=== PATIENT | female | born 1960 | race Caucasian/White ===

== ENCOUNTER 2022-10-10 15:40 | Emergency (ER) | payer SELFPAY ==
--- OUTSIDE RECORDS SUMMARY | 2022-10-10 15:45 | XMS REPORT | Continuity of Care Document ---
:1960 Author Organization [facility] t Address [address] [place] [address] Care Team Providers Name Role Phone HumairaMarlo Attending Clinician Madeleine HARRISON, Deny Diamond Attending Clinician Brielle Quinteros MD, Vishal Mancia Attending Clinician [phone] Hero Galindo MD Attending Clinician HERO GALINDO Attending Clinician Unavailable DENY SALVADOR Attending Clinician Unavailable HERO GALINDO Admitting Clinician Unavailable Problems Condition Condition Condition Status Onset Resolution Last Treating Co mments Source Name Details Category Date Date Treatment Clinician Date COPD with COPD with Disease Active [facility] exacerb[facility] exacerbati 00:00: Me dical on on 00 Center Pleural Pleural Disease Active [facility] effusion [facility]usion [facility] 00:[facility] 00 Center Smoker Smoker Problem Active 2022-02-17 Braxton lilliana (finding) (finding) 03:53:02 l Active [employer] Problem 02/17/2022 Medical Group History of Past Illness Condition Condition Condition Status Onset Resolution Last Treating Co mments Source Name Details Category Date Date Treatment Clinician Date Emphysema, Emphysema Problem 2022-02-09 2022-02-09 Memoria unspecifie , 02-06 02:00:21 02:00:21 l d unspecifie 19:28: n d 00 02/06/2022 02/09/2022 Medical Group Nicotine Nicotine Problem 2022-02-09 2022-02-09 Memoria dependence dependence 02-06 02:00:21 02:00:21 l , , 09:44: Nate unspecifie unspecifie 00 d, d, uncomplica uncomplica angel luis angel luis 02/06/2022 2 Medical Group Pleural Pleural Problem 2022-02-09 2022-02-09 Memoria effusion, effusion, 02-06 02:00:21 02:00:21 l not not 09:44: Nate elsewhere elsewhere 00 classified classified 02/06/2022 2 Medical Group Persons Persons Problem 2022-01-08 2022-01-08 Memoria encounteri encounteri 01-05 02:34:31 02:34:31 l health health 19:59: Herm abi services services 00 in other in other specified specified circumstan circumstan binta binta 01/05/2022 01/08/2022 Medical Group Acute Acute Problem 2022-01-08 2022-01-08 M emoria upper upper 01-05 02:34:31 02:34:31 l respirator respirator 15:45: He rmann y y 00 infection, infection, unspecifie unspecifie d d 01/05/2022 01/08/2022 Medical Group Allergies, Adverse Reactions, Alerts Allergy Allergy Status Severity Reaction(s) Onset Inactive Treating Comm ents Source Name Type Date Date Clinician Hydrocod Propensi Active [facility]a [facility]omiting [facility]14 [facility] adverse 00:00: Medical reaction 00 Center s Penicill Propensi Active Shortness Of [facility] ty to Breath, Rash 4-14 [facility] adverse 00:00: Medical reaction 00 Center s PENICILL Allergy Active High Sob [facility] IN 4-14 [facility] 00:[facility]: Medical 00 Center HYDROCOD Allergy Active N\T\V [facility] ONE 4-14 [facility] 00:[facility]: Medical 00 Center penicill penicill Active Memori a ins ins l Nate HYDROcod HYDROcod Active Memori a one one l [employer] [place] Social History Social Habit Start Date Stop Date Quantity Comments Source History SDOH [facility] Alcohol intake 2022-01-20 2022-01-20 Current drinker [facility] 00:00:00 00:00:00 of alcohol [facility] (finding) History [facility] 2022-01-20 2022-01-[address] [facility] Transport Med 00:00:00 00:00:[address] [facility] 2022-01-20 2022-01-[address] [facility] Housing Unable to 00:00:00 00:00:00 Medical Center Pay History [facility] 2022-01-20 2022-01-[address] [facility] Housing Places 00:00:00 00:00:00 Medical Ce nter Lived History [facility] 2022-01-20 2022-01-[address] [facility] Housing Homeless 00:00:00 00:00:00 [facility] Last Year Cigarettes smoked 2022-01-19 2022-01-19 [facility] current (pack per 00:00:00 00:00:00 Medical Center day) - Reported Cigarette 2022-01-19 2022-01-[address] [facility] pack-years 00:00:00 00:00:00 [facility] Tobacco use and 2022-01-19 2022-01-[address] Mari kes exposure 00:00:00 00:00:00 [facility] Social History 2022-01-05 2022-01-05 [facility] 19:54:20 19:54:20 Sex Assigned At [birth year] [facility] alka 00:00:00 00:00:00 [facility] Smoking Status Start Date Stop Date Source Current every day smoker 2022-01-19 00:00:00 [facility] Medications Ordered Filled Start Stop Current Ordering Indication Dosage Frequency Signature Comments Components Source Medication Medication Date Date Medication? Clinician (SIG) Name Name budesonide Yes 0.5 mg = 2 M emoria 0.5 mg/2 mL 5-02 mL, NEB, l inhalation 19:54: Daily, # Her osborn suspension 00 60 mL, 11 Refill(s) Nebulizer Yes 1 ea, Memoria 5-02 MISC, l 19:54: ONCALL, # Nate 00 1 ea, 0 Refill(s) Nebulizer 2022-0 Yes 1 ea, Memoria Mask Adult 5-02 MISC, PRN, l Misc/Other 19:54: PRN As Heather nn 00 directed by physician, # 1 ea, 0 Refill(s) Albuterol Yes = 2 puff, Mem oria (Eqv-Proven -02 INHALATION l til HFA) 90 19:53: , Q6H, # 8 Nate mcg/inh 00 gm, 3 inhalation Refill(s), aerosol Pharmacy: [facility] #[id number], 152.4, cm, 02/06/22 14:29:00 CDT, Height, 52.955, kg, 02/06/22 14:29:00 CDT, Weight albuterol Yes Inhale by [facility] HFA 16 mouth via [facility] (VENTOLIN 15:19: inhaler Medic al HFA) 90 54 every 6 Center mcg/actuati (six) on inhaler hours as needed for Wheezing. predniSONE Yes Prednisone [facility] (DELTASONE) 16 taper : [facility] 10 MG 00:00: take 30 mg Medica l tablet 00 for 3 Center days, 20 mg for 3 days, 10 mg for 3 days. then discontinu e. furosemide 2021- No 20mg QD Take [address] (LASIX) 20 01-21-23 tablet (20 Mari kes MG tablet 00:00: 23:59 mg total) Me dical 00 :00 by mouth Center daily for 7 days. azithromyci 2021- No 500mg QD Take [address] n 01-2119 tablet [facility] (ZITHROMAX) 00:00: 23:59 (500 mg Me dical 500 MG 00 :00 total) by Center tablet mouth daily for 3 days. Albuterol Yes = 2 puff, Mem oria (Eqv-Proven -12 INHALATION l til HFA) 90 16:15: , Q6H, # 8 Nate mcg/inh 00 gm, 0 inhalation Refill(s), aerosol Pharmacy: [facility] #[id number], 152.4, cm, 01/05/22 14:42:00 CDT, Height, 56.875, kg, 01/05/22 14:42:00 CDT, Weight penicillin 2021-0 Yes 500 mg = 1 M emoria V potassium 3-31 tab, PO, l 500 mg oral 20:28: BID, X 10 H ermann tablet 00 day, # 20 tab, 0 Refill(s), Pharmacy: [facility] #[id number], 152.4, cm, 01/05/22 14:42:00 CDT, Height, 56.875, kg, 01/05/22 14:42:00 CDT, Weight Cepacol 0 Yes 1 lozenge, Braxton lilliana Sore Throat 3-31 PO, Q2H, X l Extra 20:25: 5 day, # [employer] Strength 00 16 ea, 0 [place] Refill(s), 15 mg-2.3 Pharmacy: mucous [facility] loz[facility] #[id number], 152.4, cm, 01/05/22 14:42:00 CDT, Height, 56.875, kg, 01/05/22 14:42:00 CDT, Weight Tessalon Yes 100 mg = 1 Mem oria Perles 100 3-31 cap, PO, l mg oral 20:25: Q8H, PRN n capsule 00 cough, do not crush or chew, X 10 day, # 30 cap, 0 Refill(s), Pharmacy: [facility] #[id number], 152.4, cm, 01/05/22 14:42:00 CDT, Height, 56.875, kg, 01/05/22 14:42:00 CDT, Weight Lidocaine 0 Yes 0.1 gm = 5 Me moria Viscous 2% 3-31 mL, l mucous 20:24: S&SPIT, Nate membrane 00 TID, PRN solution Sore Throat, X 5 day, # 80 mL, 0 Refill(s), [id number], 152.4, cm, 01/05/22 14:42:00 CDT, Height, 56.875, kg, 01/05/22 14:42:00 CDT, Weight ibuprofen 0 Yes 200 mg = 1 Me moria 200 mg oral 3-31 tab, PO, l tablet 19:52: Q6H Nate 00 Tylenol Yes 1,000 mg = Braxton lilliana Caplet 3-31 2 tab, PO, l Extra 19:51: Q6H [employer] Strength 00 500 mg oral tablet Vitamin C Yes = 1 tab, Braxton lilliana 3-31 PO, Daily l 19:50: Nate 00 One A Day Yes 1 tab, PO, Me moria Women's 3-31 Daily l Complete 19:50: Nate oral tablet 00 Immunizations Ordered Immunization Filled Immunization Date Status Commen ts Source Name Name [id number] 2021-09-08 Completed Braxton rial [id number]-[id number] 00:00:00 Herm abi [id number] 2021-01-22 Completed Braxton rial NABNT-[id number] 00:00:00 Herm abi [id number] 2021-01-01 Completed Braxton rial NABNT-[id number] 00:00:00 Herm abi Vital Signs Vital Name Observation Time Observation Value Comments Source HEIGHT 2022-01-19 04:20:00 157.5 cm WEIGHT 2022-01-19 04:20:00 50.803 kg HEIGHT 2022-01-19 04:20:00 157.5 cm WEIGHT 2022-01-19 04:20:00 50.803 kg HEIGHT 2022-01-19 04:20:00 157.5 cm WEIGHT 2022-01-19 04:20:00 50.803 kg Temperature Oral (F) 2022-02-06 19:29:00 98.9 F [facility] Heart Rate 2022-02-06 19:29:00 [facility] [employer] [place] Systolic (mm Hg) 2022-02-06 19:29:00 Braxton rial [employer] [place] Diastolic (mm Hg) 2022-02-06 19:29:00 Mem orial Nate Height 2022-02-06 19:29:00 152.4 cm [facility] [employer] Weight 2022-02-06 19:29:00 [facility] BMI Calculated 2022-02-06 19:29:00 Harlanori al [employer] [place] Heart rate 2022-01-21 11:43:54 109 /min [facility] Respiratory rate 2022-01-21 11:43:54 18 /min [facility] Oxygen saturation in 2022-01-21 11:43:54 92 /min [facility] Arterial blood by Medical Ce nter Pulse oximetry Systolic blood 2022-01-21 11:43:22 116 mm[Hg] [facility] Diastolic blood 2022-01-21 11:43:22 71 mm[Hg] [facility] Body temperature 2022-01-21 11:43:20 36.56 Rae [facility] Body height 2022-01-19 04:20:00 157.5 cm [facility] Body weight 2022-01-19 04:20:00 50.803 kg [facility] BMI 2022-01-19 04:20:00 20.49 kg/m2 [facility] Diastolic (mm Hg) 2022-01-05 19:35:00 Mem orial Nate Height 2022-01-05 19:35:00 152.4 cm [facility] Weight 2022-01-05 19:35:00 [facility] BMI Calculated 2022-01-05 19:35:00 Memori al Nate Temperature Oral (F) 2022-01-05 19:35:00 102.0 F [facility] Heart Rate 2022-01-05 19:35:00 [facility] Systolic (mm Hg) 2022-01-05 19:35:00 [facility] Procedure Date / Time Performing Clinician Source Performed XR CHEST 1 VIEW PORTABLE 2022-01-21 06:21:[address] [facility] CBC W/PLT COUNT & AUTO 2022-01-21 04:40:00 Kamla Polo [facility] BASIC METABOLIC PANEL 2022-01-21 04:40:00 Kamla Polo [facility] CBC W/PLT COUNT & AUTO 2022-01-21 04:40:00 Kamla Polo [facility] MAGNESIUM 2022-01-20 16:01:00 [place], [facility] POTASSIUM 2022-01-20 16:01:00 Genna [facility] CBC W/PLT COUNT & AUTO 2022-01-20 04:33:00 [facility] BASIC METABOLIC PANEL 2022-01-20 04:33:[address] [facility] CBC W/PLT COUNT & AUTO 2022-01-20 04:33:00 [facility] XR CHEST 1 VIEW PORTABLE 2022-01-20 04:05:[address] [facility] EBV ANTIBODY, IGG 2022-01-19 15:21:00 Ge Magana [facility] RESPIRATORY PANEL 2022-01-19 11:10:[address] [facility] TROPONIN I 2022-01-19 11:03:00 Deepti Daigle [facility] 2D ECHO W/ DOPPLER 2022-01-19 09:38:58 [facility] (CW/PW/COLOR) [facility] XR CHEST 1 VIEW PORTABLE 2022-01-19 07:08:00 Madeleine [facility] B-TYPE NATRIURETIC FACTOR 2022-01-19 05:57:00 Madeleine Denybita Diamond [facility] (BNP) [facility] TSH/FREE T4 IF INDICATED 2022-01-19 05:57:00 Madeleine [facility] T4, FREE 2022-01-19 05:57:00 Madeleine, [facility] CBC W/PLT COUNT & AUTO 2022-01-19 05:53:00 Madeleine [facility] COMPREHENSIVE METABOLIC 2022-01-19 05:53:00 Madeleine [facility] LACTIC ACID, VENOUS 2022-01-19 05:53:00 Madeleine [facility] CBC W/PLT COUNT & AUTO 2022-01-19 05:53:00 Deny [facility] DI[facility] EKG-SCANNED 2022-01-19 00:00:00 Provider, Andie EVANS [facility] Vaginal delivery Azael Sutton n Procedure on Azael Sullivan foot<sup>1</sup> Plan of Care Planned Activity Planned Date Details Comments Source Future Scheduled 2023-01-[address] [facility] Test 00:00:00 Counseling and Medical Cente r Screening (12+) [code = Tobacco Cessation Counseling and Screening (12+)] Future Scheduled 2022-10-[address] [facility] Test 00:00:00 (12+) [code = Medical Center DEPRESSION SCREENING (12+)] Future Scheduled 2022-06-08 INFLUENZA VACCINE (#1) [facility] 00:00:00 [code = INFLUENZA Medical Ce nter VACCINE (#1)] Future Scheduled 2009 Screening for malignant [facility] Test 00:00:00 neoplasm of lung Medical [address] (procedure) [code = 434889333] Future Scheduled 2009 SHINGLES VACCINES ([address] [facility] Test 00:00:00 2) [code = SHINGLES Medical Center VACCINES (1 of 2)] Future Scheduled 2004 Lipid panel (procedure) [facility] Test 00:00:00 [code = 61495516] Medical Ce nter Future Scheduled 1980 Screening for malignant [facility] Test 00:00:00 neoplasm of cervix Medical C enter (procedure) [code = 084640821] Future Scheduled 1978 DTAP/TDAP/TD VACCINES [facility] Test 00:00:00 (1 - Tdap) [code = Medical C enter DTAP/TDAP/TD VACCINES (1 - Tdap)] Future Scheduled 1977 HEPATITIS C SCREENING [facility] Test 00:00:00 [code = HEPATITIS C Medical Center SCREENING] Future Scheduled [address] [facility] Test 00:00:00 0-64 YRS (1 - PCV) Medical C enter [code = PNEUMOCOCCAL VACCINE 0-64 YRS (1 - PCV)] Future Scheduled 1959 COVID-19 VACCINE (#1[facility] Test 00:00:00 [code = COVID-[address] VACCINE (#1)] Future Scheduled 1959 Screening for malignant [facility] Test 00:00:00 neoplasm of breast Medical C enter (procedure) [code = 385523785] Future Scheduled 1959 CT Colonography (combo) [facility] Test 00:00:00 [code = CT Colonography [facility] (combo)] Future Scheduled 1959 Screening for malignant [facility] Test 00:00:00 neoplasm of colon Medical Ce nter (procedure) [code = 302293505] Future Scheduled 1959 Screening for malignant [facility] Test 00:00:00 neoplasm of colon Medical Ce nter (procedure) [code = 772388515] Future Scheduled 1959 Screening for malignant [facility] Test 00:00:00 neoplasm of colon Medical Ce nter (procedure) [code = 514288056] Future Scheduled 1959 Screening for malignant [facility] Test 00:00:00 neoplasm of colon Medical Ce nter (procedure) [code = 705843444] Future Scheduled 1960 Sigmoidoscopy [code = [facility] Test 00:00:00 Sigmoidoscopy] Medical Cente r Encounters Start End Encounter Admission Attending Care Care Encounter Source Date/Time Date/Time Type Type Clinicians Facility Department ID 2022-10-12 2022-10-12 Outpatient [facility] [id number] Memoria 15:20:00 15:20:00 02 lakeisha Sullivan 2022-02-13 2022-02-15 Phone nullFlavo [facility] [id number] Memoria 15:31:08 04:59:59 Message r [facility] 2022-02-13 2022-02-14 Outpatient MG [facility] [id number] 10:31:08 23:59:59 2022-02-06 2022-02-07 Outpatient nullFlavo [facility] [id number] Memoria 19:00:00 04:59:59 r Primary 01 l [facility] 2022-02-06 2022-02-06 Outpatient Marlo Gerardo [facility] [id number] 14:00:00 23:59:59 01 2022-02-06 2022-02-06 Outpatient MHIE [place] [id number] Memoria 14:00:00 14:00:00 01 l [employer] [place] 2022-01-19 2022-01-21 [facility] Deny Salvador [facility] [id number] 04:07:00 15:19:00 Encounter Vishal Perez Jaya [facility] 2022-01-19 2022-01-21 Inpatient ER HERO GALINDO [facility] Internal [id number] [facility] 04:07:00 15:19:00 Med 2022-01-17 2022-01-19 Phone nullFlavo [facility] [id number] Memoria 15:48:44 04:59:59 Message r Primary 00 l Care Nateabi AbrahamBrewster 2022-01-19 2022-01-19 Travel [facility] [id number] [facility] 00[facility] 00:00:00 [facility] 2022-01-17 2022-01-18 Outpatient MG MG [id number] 10:48:44 23:59:59 00 2022-01-05 2022-01-06 [place] [id number] Memoria 19:40:00 04:59:59 r Primary 00 l [facility] 2022-01-05 2022-01-05 Outpatient Marlo Gerardo MG [facility] [id number] 14:40:00 23:59:59 00 2022-01-05 2022-01-05 Outpatient IE IE [id number] Memoria 14:40:00 14:40:00 00 l [employer] [place] Results Test Description Test Time Test Comments Results Result Comments Source EBV ANTIBODY, IGM 2022-01-23 15:15:57 Test Item Value Reference Range Interpretation Comme nts RUBENS MADDOX VIRAL CAPSID ANTIGEN IGM (BEAKER) (test Negativ e Negative, Equivocal code = 3418) Rubens Maddox Viral Capsid Antigen IgM Result Interpretation: </= 0.8 Al Negative 0.9-1.0 Al Equivocal >/= 1.1 Al PositiveEBV ANTIBODY, [id number] 15:15:57 Test Item Value Reference Range Interpretation Comments RUBENS MADDOX VIRAL CAPSID Positive Negative, Equivocal A ANTIGEN IGG (BEAKER) (test code = 3415) Rubens Maddox Viral Capsid Antigen IgG Result Interpretation: </= 0.8 Al Negative 0.9-1.0 Al Equivocal >/= 1.1 Al PositiveRAD, CHEST, 1 VIEW, NON DEPT 2022-01-21 06:23:00Reason for exam:->COPD exacShould this be performed at the bedside?->Yes[facility] : 1960 Sex: FFINAL REPORT RAD, CHEST, 1 VIEW, NON DEPT INDICATION: COPD exac COMPARISON: Prior day's exam FINDINGS: Portable frontal view of the chest. IMPRESSION: Support Lines: Overlying leads/monitorsLungs and pleura: Small bilateral effusions and adjacent atelectasis, unchanged. No significant pneum othorax. Heart and mediastinum: Stable contours. Additional findings: None. Signed: Frannie Paz [facility] Verified Date/Time: 01/21/2022 06:23:32 C METABOLIC [id number] 05:35:54 Test Item Value Reference Range Interpretation Comments SODIUM (BEAKER) 142 meq/L 135-148 (test code = 381) POTASSIUM (BEAKER) 4.2 meq/L 3.5-5.5 (test code = 379) CHLORIDE (BEAKER) 102 meq/L 98-106 (test code = 382) CO2 (BEAKER) (test 26 meq/L 20-31 code = 355) BLOOD UREA NITROGEN 11 mg/dL 10-26 (BEAKER) (test code = 354) CREATININE (BEAKER) 0.56 mg/dL 0.50-1.20 (test code = 358) GLUCOSE RANDOM 123 mg/dL 70-110 H (BEAKER) (test code = 652) CALCIUM (BEAKER) 9.2 mg/dL 8.5-10.5 (test code = 697) EGFR (BEAKER) (test 110 mL/min/1.73 ESTIM ATED GFR IS code = 1092) sq m NOT ACCURATE CREATININE CLEARANCE IN PREDICTING GLOMERULAR FILTRATION RATE . ESTIMATED GFR I S NOT APPLICABLE FOR DIALYSIS PATIEN TS. [employer] ID - [id number] W/PLT COUNT & AUTO [id number] 04:59:41 Test Item Value Reference Range Interpretation Comments WHITE BLOOD CELL COUNT (BEAKER) 9.4 K/ L 4.0-10.0 (test code = 775) RED BLOOD CELL COUNT (BEAKER) 4.39 M/ L 4.00-5.00 (test code = 761) HEMOGLOBIN (BEAKER) (test code = 12.4 GM/DL 12.0-15.5 410) HEMATOCRIT (BEAKER) (test code = 39.9 % 36.0-46.0 411) MEAN CORPUSCULAR VOLUME (BEAKER) 90.9 fL 82.0-99.0 (test code = 753) MEAN CORPUSCULAR HEMOGLOBIN 28.2 pg 27.0-33.0 (BEAKER) (test code = 751) MEAN CORPUSCULAR HEMOGLOBIN CONC 31.1 GM/DL 32.0-36.0 L (BEAKER) (test code = 752) RED CELL DISTRIBUTION WIDTH 13.8 % 12.0-15.0 (BEAKER) (test code = 412) PLATELET COUNT (BEAKER) (test 550 K/CU MM 150-430 H code = 756) MEAN PLATELET VOLUME (BEAKER) 8.9 fL 6.0-11.5 (test code = 754) NUCLEATED RED BLOOD CELLS 0 /100 WBC 0-0 (BEAKER) (test code = 413) NEUTROPHILS RELATIVE PERCENT 81 % (BEAKER) (test code = 429) LYMPHOCYTES RELATIVE PERCENT 14 % (BEAKER) (test code = 430) MONOCYTES RELATIVE PERCENT 5 % (BEAKER) (test code = 431) EOSINOPHILS RELATIVE PERCENT 0 % (BEAKER) (test code = 432) BASOPHILS RELATIVE PERCENT 0 % (BEAKER) (test code = 437) NEUTROPHILS ABSOLUTE COUNT 7.61 K/ L 1.80-8.00 (BEAKER) (test code = 670) LYMPHOCYTES ABSOLUTE COUNT 1.27 K/ L 1.48-4.50 L (BEAKER) (test code = 414) MONOCYTES ABSOLUTE COUNT (BEAKER) 0.44 K/ L 0.00-1.30 (test code = 415) EOSINOPHILS ABSOLUTE COUNT 0.00 K/ L 0.00-0.50 (BEAKER) (test code = 416) BASOPHILS ABSOLUTE COUNT (BEAKER) 0.03 K/ L 0.00-0.20 (test code = 417) IMMATURE GRANULOCYTES-RELATIVE 1 % 0-0 H PERCENT (BEAKER) (test code = 2801) [id number] 19:18:15 Test Item Value Reference Range Interpretation Comments MAGNESIUM (BEAKER) (test code = 2.2 mg/dL 1.5-3.0 627) [employer] ID - [id number] 16:21:29 Test Item Value Reference Range Interpretation Comments POTASSIUM (BEAKER) (test code = 3.6 meq/L 3.5-5.5 379) [employer] ID - [id number], CHEST, 1 VIEW, NON [id number] 06:23:00Reason for exam:->COPD exacShould this be performed at the bedside?->Yes [facility] : 1960 Sex: FFINAL REPORT RAD, CHEST, 1 VIEW, NON DEPT INDICATION: COPD exac COMPARISON: Prior day's exam FINDINGS: Portable frontal view of the chest. IMPRESSION: Support Lines: None. Lungs and pleura: Unchanged airspace and pleural opacities. No pneumothorax.Heart and mediastinum: Stable contours. Tom tional findings: None. Signed: Jose Manuel Boyd Verified Date/Time: 01/20/2022 06:23:22 BASIC METABOLIC [id number] 05:38:06 Test Item Value Reference Range Interpretation Comments SODIUM (BEAKER) 142 meq/L 135-148 (test code = 381) POTASSIUM (BEAKER) 3.3 meq/L 3.5-5.5 L (test code = 379) CHLORIDE (BEAKER) 102 meq/L 98-106 (test code = 382) CO2 (BEAKER) (test 28 meq/L 20-31 code = 355) BLOOD UREA NITROGEN 13 mg/dL 10-26 (BEAKER) (test code = 354) CREATININE (BEAKER) 0.60 mg/dL 0.50-1.20 (test code = 358) GLUCOSE RANDOM 111 mg/dL 70-110 H (BEAKER) (test code = 652) CALCIUM (BEAKER) 8.6 mg/dL 8.5-10.5 (test code = 697) EGFR (BEAKER) (test 101 mL/min/1.73 ESTIM ATED GFR IS code = 1092) sq m NOT ACCURATE CREATININE CLEARANCE IN PREDICTING GLOMERULAR FILTRATION RATE . ESTIMATED GFR I S NOT APPLICABLE FOR DIALYSIS PATIEN TS. [employer] ID - [id number] W/PLT COUNT & AUTO [id number] 04:59:22 Test Item Value Reference Range Interpretation Comments WHITE BLOOD CELL COUNT (BEAKER) 10.4 K/ L 4.0-10.0 H (test code = 775) RED BLOOD CELL COUNT (BEAKER) 4.04 M/ L 4.00-5.00 (test code = 761) HEMOGLOBIN (BEAKER) (test code = 11.7 GM/DL 12.0-15.5 L 410) HEMATOCRIT (BEAKER) (test code = 37.0 % 36.0-46.0 411) MEAN CORPUSCULAR VOLUME (BEAKER) 91.6 fL 82.0-99.0 (test code = 753) MEAN CORPUSCULAR HEMOGLOBIN 29.0 pg 27.0-33.0 (BEAKER) (test code = 751) MEAN CORPUSCULAR HEMOGLOBIN CONC 31.6 GM/DL 32.0-36.0 L (BEAKER) (test code = 752) RED CELL DISTRIBUTION WIDTH 13.9 % 12.0-15.0 (BEAKER) (test code = 412) PLATELET COUNT (BEAKER) (test 511 K/CU MM 150-430 H code = 756) MEAN PLATELET VOLUME (BEAKER) 9.2 fL 6.0-11.5 (test code = 754) NUCLEATED RED BLOOD CELLS 0 /100 WBC 0-0 (BEAKER) (test code = 413) NEUTROPHILS RELATIVE PERCENT 71 % (BEAKER) (test code = 429) LYMPHOCYTES RELATIVE PERCENT 20 % (BEAKER) (test code = 430) MONOCYTES RELATIVE PERCENT 6 % (BEAKER) (test code = 431) EOSINOPHILS RELATIVE PERCENT 1 % (BEAKER) (test code = 432) BASOPHILS RELATIVE PERCENT 1 % (BEAKER) (test code = 437) NEUTROPHILS ABSOLUTE COUNT 7.38 K/ L 1.80-8.00 (BEAKER) (test code = 670) LYMPHOCYTES ABSOLUTE COUNT 2.09 K/ L 1.48-4.50 (BEAKER) (test code = 414) MONOCYTES ABSOLUTE COUNT (BEAKER) 0.64 K/ L 0.00-1.30 (test code = 415) EOSINOPHILS ABSOLUTE COUNT 0.12 K/ L 0.00-0.50 (BEAKER) (test code = 416) BASOPHILS ABSOLUTE COUNT (BEAKER) 0.06 K/ L 0.00-0.20 (test code = 417) IMMATURE GRANULOCYTES-RELATIVE 1 % 0-0 H PERCENT (BEAKER) (test code = 2801) Respiratory Panel [id number] 15:15:05 Test Item Value Reference Range Interpretation Comments Human Metapneumovirus Not detected Not detected, (test code = 86119-8) Equivocal Rhinovirus (test code = Not detected Not detected, 91368-6) Equivocal INFLUENZA A (NO Not detected Not detected, SUBTYPE) (test code = Equivocal 10839-6) Influenza A subtype H1 (test code = 25505-3) Influenza A Subtype H3 (test code = 70244-9) Influenza A Subtype H1-2009 (test code = 41433-1) Influenza B (test code Not detected Not detected, = 02967-9) Equivocal Respiratory Syncytial Not detected Not detected, Virus (test code = Equivocal 10892-9) Parainfluenza Virus 1 Not detected Not detected, (test code = 84978-2) Equivocal Parainfluenza Virus 2 Not detected Not detected, (test code = 15116-2) Equivocal Parainfluenza virus 3 Not detected Not detected, (test code = 64799-9) Equivocal Parainfluenza Virus 4 Not detected Not detected, (test code = 74050-8) Equivocal Adenovirus (test code = Not detected Not detected, 48812-4) Equivocal Coronavirus 229E (test Not detected Not detected, code = 62713-6) Equivocal Coronavirus HKU1 (test Not detected Not detected, code = 10657-6) Equivocal Coronavirus NL63 (test Not detected Not detected, code = 20218-9) Equivocal Coronavirus OC43 (test Not detected Not detected, code = 99011-7) Equivocal Bordetella Pertussis Not detected Not detected, (test code = 30357-8) Equivocal Chlamydophila Not detected Not detected, Pneumoniae (test code = Equivocal 14553-5) Mycoplasma Pneumoniae Not detected Not detected, (test code = 94611-1) Equivocal MOHAN (test code = MOHAN) Other viruses and bacteria not targeted by this PCR panel cannot be excluded; therefore clinical correlation and follow up of serology, culture results, and other molecular studies is required. The results are not intended to be used as the sole means for clinical diagnosis or patient management decisions. This sample was tested at the [facility] using the [employer] DiscoveryArray Respiratory Panel. It is FDA cleared and has been verified and approved by the [facility] for clinical use on nasopharyngeal swab specimens. The performance of the FilmArray RP has not been established in individuals who received influenza vaccine. Recent administration of a nasal influenza vaccine may cause false positive results for Influenza A and/orInfluenza B. [id number] 15:15:05 Test Item Value Reference Range Interpretation Comments HUMAN METAPNEUMOVIRUS Not detected Not detected, (BEAKER) (test code = 2683) Equivocal RHINOVIRUS (BEAKER) (test Not detected Not detected, code = 2684) Equivocal INFLUENZA A (BEAKER) (test Not detected Not detected, code = 2685) Equivocal INFLUENZA A (NO SUBTYPE) (test code = 3606) INFLUENZA A SUBTYPE H1 (BEAKER) (test code = 2686) INFLUENZA A SUBTYPE H3 (BEAKER) (test code = 2687) INFLUENZA A SUBTYPE H1-2009 (BEAKER) (test code = 3198) INFLUENZA B (BEAKER) (test Not detected Not detected, code = 2688) Equivocal RESPIRATORY SYNCYTIAL VIRUS Not detected Not detected, (BEAKER) (test code = 3199) Equivocal PARAINFLUENZA VIRUS 1 Not detected Not detected, (BEAKER) (test code = 2691) Equivocal PARAINFLUENZA VIRUS 2 Not detected Not detected, (BEAKER) (test code = 2692) Equivocal PARAINFLUENZA VIRUS 3 Not detected Not detected, (BEAKER) (test code = 2693) Equivocal PARAINFLUENZA VIRUS 4 Not detected Not detected, (BEAKER) (test code = 3200) Equivocal ADENOVIRUS (BEAKER) (test Not detected Not detected, code = 2694) Equivocal CORONAVIRUS 229E (BEAKER) Not detected Not detected, (test code = 3201) Equivocal CORONAVIRUS HKU1 (BEAKER) Not detected Not detected, (test code = 3202) Equivocal CORONAVIRUS NL63 (BEAKER) Not detected Not detected, (test code = 3203) Equivocal CORONAVIRUS OC43 (BEAKER) Not detected Not detected, (test code = 3204) Equivocal BORDETELLA PERTUSSIS Not detected Not detected, (BEAKER) (test code = 3205) Equivocal CHLAMYDOPHILA PNEUMONIAE Not detected Not detected, (BEAKER) (test code = 3206) Equivocal MYCOPLASMA PNEUMONIAE Not detected Not detected, (BEAKER) (test code = 3207) Equivocal Other viruses and bacteria not targeted by this PCR panel cannot be excluded; therefore clinical correlation and follow up of serology, culture results, and other molecular studies is required. The results are not intended to be used as the sole means for clinical diagnosis or patient management decisions. This sample was tested at the [facility] using the [employer] Respiratory Panel. It is FDA cleared and has been verified and approved by the [facility] for clinical use on nasopharyngeal swab specimens.The performance of the FilmArrayRP has not been established in individuals who received influenza vaccine. Recent administration of a nasal influenza vaccine may cause false positive results for Influenza A and/orInfluenza B.2D Echo W/Doppler(CW/PW/Color)2022-01-19 13:50:15 Test Item Value Reference Range Interpretation Comments Ejection Fraction Est EF is 50-55% (test code = 2574) Radiology Study observation (narrative) (test code = 67408-5) HARSHADN (test code = Amina Ramirez PXN) - 01/19/2022 Transthoracic Echocardiography Report (TTE) Demographics Patient Name LUZMA HELMS Date of Study 01/19/2022 Gender Female Visit Number [id number] Race Unknown Accession Number [id number] Room Number C256 Date of 1960 Referring Physician DENY SALVADOR Age 61 year(s) Loss Prevention Coordinator [facility] Interpreting [facility] Physician Amina Ramirez MD Procedure Type of Study TTE procedure:2DECHO W DOPPLER(CW/PW/COLOR) (Routine) Indications:Respiratory failure or hypoxemia .Height: 62 inches Weight: 50.8 kg (112 lbs) BSA: 1.49 m^2 BMI: 20.48 kg/m^2HR: 102 bpm BP: 116/71 mmHg Summary Aneurysmal interatrial septum. Normal left ventricular chamber size. Normal wall thickness. Normal overall left ventricular systolic function. No apparent segmental wall motion abnormalities. Estimated LVEF is 50-55%. Grade 1 diastolic dysfunction (impaired relaxation and low-normal LA pressure). No evidence of pericardial effusion. RAP 6 - 10 mmHg. Left pleural effusion noted. Normal right ventricle structure and function. Normal tricuspid valve structure and function. Unable to estimate peak systolic PA pressure; inadequate TR velocity signal. Signature Findings Technical Quality: Technically difficult exam. Left Ventricle Normal left ventricular chamber size. Normal wall thickness. Normal overall left ventricular systolic function. No apparent segmental wall motion abnormalities. Estimated LVEF is 50-55%. Grade 1 diastolic dysfunction (impaired relaxation and low-normal LA pressure). Left Atrium Normal size left atrium. Right Ventricle Normal right ventricle structure and function. Right Atrium Normal right atrium. Atrial Septum Aneurysmal interatrial septum. Aortic Valve Normal aortic valve structure and function. Mitral Valve Normal mitral valve structure and function. Tricuspid Valve Normal tricuspid valve structure and function. Unable to estimate peak systolic PA pressure; inadequate TR velocity signal. Pulmonic Valve Normal pulmonic valve structure and function. Aorta The aortic root is normal size at the Sinus of Valsalva. Pericardium No evidence of pericardial effusion. IVC/SVC/PA/PV/Pleural RAP 6 - 10 mmHg. Left pleural effusion noted. Chambers/Structures Left Atrium LA Area: 9.16 cm^2 Left Ventricle LVIDd: 4.15 cm LVEDV:76.59 ml LVIDs: 3.12 cm LVESV:38.46 ml LV Septum Diastolic: 0.72 cm LVEF 2D Cube: 57.7 % LV PW Diastolic: 0.74 cm LV FS: 24.8 % LVOT Diameter: 2.01 cm LVEF: 49.8 % Right Atrium RA Area: 9.3 cm^2 Right Ventricle RV Diast Dim.: 2.39 cm Aorta Ao Root S of Zoie.: 2.86 cm Ascending Aorta: 3.18 cm Doppler/Quantitative Measurements Mitral Valve MV Peak E-Wave: 0.61 m/s MV Peak A-Wave: 0.76 m/s E/A Ratio: 0.8 Peak Gradient: 1.5 mmHg Deceleration Time: 268.3 msec MV Lito. Peak: Tissue Doppler E' Septal Velocity: 0.11 m/s E/E': 5.37 E' Lateral Velocity: 0.12 m/s Aortic Valve Peak Velocity: 1.28 m/s Mean Velocity: 0.9 m/s Peak Gradient: 6.55 mmHg Mean Gradient: 3.7 mmHg AV Area (continuity): 2.43 cm^2 AV VTI: 22.86 cm AV DVI: 0.77 LVOT Peak Velocity: 0.92 m/s Peak Gradient: 3.36 mmHg Mean Velocity: 0.65 m/s Mean Gradient: 1.93 mmHg LVOT Diameter: 2.01 cm LVOT VTI: 17.53 cm LVOT Area: 3.17 cm^2 LVOT SV:55.6 ml LVOT CO: 5.67 l/min LVOT CI: 3.81 l/min/m^2 Pulmonic Valve Peak Velocity: 0.94 m/s Peak Gradient: 3.51 mmHg [facility] [id number] 11:31:12 Test Item Value Reference Range Interpretation Comments TROPONIN I (KATERINE) (test code = 397) < ng/mL 0.00-0.15 Troponin I (TnI) levels must be interpreted in the context of the presenting symptoms and the clinical findings. Elevated TnI levels indicate myocardial damage, but are not specific for ischemic heart disease. Elevated TnI levels are seen in patients with other cardiac conditions (including myocarditis and congestive heart failure), and slight TnI elevations occur in patients with other conditions, including sepsis, renal failure, acidosis, acute neurological disease, and persistent tachyarrhythmia.[employer] ID - [id number], [id number] 07:31:17 Test Item Value Reference Range Interpretation Comments FREE T4 (KATERINE) (test code = 655) 1.16 ng/dL 0.90-1.80 [employer] ID - [id number], CHEST, 1 VIEW, NON [id number] 07:19:00Reason for exam:->shortness of breath [facility] 1960 Sex: FFINAL REPORT TECHNIQUE: Frontal view of the chest. INDICATION: shortness of breath COMPARISON: None. FINDINGS: LINES/TUBES: None. LUNGS: Bibasilar consolidation adjacent to the small pleuraleffusions.. No pneumothorax.. HEART AND MEDIASTINUM: The cardiomediastinal silhouette is within normal limits. SOFT TISSUES AND BONES: Unremarkable. IMPRESSION:Small bilateral pleural effusions with bibasilar consolidation likely representing atelectasis. Superimposed pneumonia is not excluded. Signed: Swati Williamson MDReport Verified Date/Time: 01/19/2022 07:19:36 Reading Location: [facility] Reading Room /FREE T4 IF [id number] 07:01:22 Test Item Value Reference Range Interpretation Comments THYROID STIMULATING HORMONE 0.250 uIU/mL 0.350-5.500 L (BEAKER) (test code = 772) [employer] ID - [id number] NATRIURETIC FACTOR (BNP)2022-01-19 06:41:21 Test Item Value Reference Range Interpretation Comments B-TYPE NATRIURETIC PEPTIDE (BEAKER) 87 pg/mL 0-100 (test code = 700) [employer] ID - [id number] METABOLIC [id number] 06:35:43 Test Item Value Reference Range Interpretation Comments TOTAL PROTEIN 6.7 gm/dL 6.0-8.5 (BEAKER) (test code = 770) ALBUMIN (BEAKER) 3.4 g/dL 3.5-5.0 L (test code = 1145) ALKALINE PHOSPHATASE 85 U/L 30-115 (BEAKER) (test code = 346) BILIRUBIN TOTAL 0.6 mg/dL 0.1-1.3 (BEAKER) (test code = 377) SODIUM (BEAKER) (test 140 meq/L 135-148 code = 381) POTASSIUM (BEAKER) 3.7 meq/L 3.5-5.5 (test code = 379) CHLORIDE (BEAKER) 102 meq/L 98-106 (test code = 382) CO2 (BEAKER) (test 28 meq/L 20-31 code = 355) BLOOD UREA NITROGEN 6 mg/dL 10-26 L (BEAKER) (test code = 354) CREATININE (BEAKER) 0.57 mg/dL 0.50-1.20 (test code = 358) GLUCOSE RANDOM 132 mg/dL 70-110 H (BEAKER) (test code = 652) CALCIUM (BEAKER) 8.6 mg/dL 8.5-10.5 (test code = 697) AST (SGOT) (BEAKER) 16 U/L 5-40 (test code = 353) ALT (SGPT) (BEAKER) 23 U/L 6-50 (test code = 347) EGFR (BEAKER) (test 107 ESTIMATE D GFR IS code = 1092) mL/min/1.73 sq NOT ACCURA TE m CREATININE CLEARANCE IN PREDICTING GLOMERULAR FILTRATION RATE . ESTIMATED GFR I S NOT APPLICABLE FOR DIALYSIS PATIEN TS. [employer] ID - [id number] ACID, [id number] 06:28:38 Test Item Value Reference Range Interpretation Comments LACTATE BLOOD VENOUS 0.74 mmol/L 0.50-2.20 Specime n slightly (2) (BEAKER) (test hemolyzed code = 4072) [employer] ID - [id number] W/PLT COUNT & AUTO [id number] 06:13:20 Test Item Value Reference Range Interpretation Comments WHITE BLOOD CELL COUNT (BEAKER) 11.9 K/ L 4.0-10.0 H (test code = 775) RED BLOOD CELL COUNT (BEAKER) 4.01 M/ L 4.00-5.00 (test code = 761) HEMOGLOBIN (BEAKER) (test code = 11.6 GM/DL 12.0-15.5 L 410) HEMATOCRIT (BEAKER) (test code = 36.1 % 36.0-46.0 411) MEAN CORPUSCULAR VOLUME (BEAKER) 90.0 fL 82.0-99.0 (test code = 753) MEAN CORPUSCULAR HEMOGLOBIN 28.9 pg 27.0-33.0 (BEAKER) (test code = 751) MEAN CORPUSCULAR HEMOGLOBIN CONC 32.1 GM/DL 32.0-36.0 (BEAKER) (test code = 752) RED CELL DISTRIBUTION WIDTH 13.6 % 12.0-15.0 (BEAKER) (test code = 412) PLATELET COUNT (BEAKER) (test 545 K/CU MM 150-430 H code = 756) MEAN PLATELET VOLUME (BEAKER) 9.1 fL 6.0-11.5 (test code = 754) NUCLEATED RED BLOOD CELLS 0 /100 WBC 0-0 (BEAKER) (test code = 413) NEUTROPHILS RELATIVE PERCENT 90 % (BEAKER) (test code = 429) LYMPHOCYTES RELATIVE PERCENT 6 % (BEAKER) (test code = 430) MONOCYTES RELATIVE PERCENT 3 % (BEAKER) (test code = 431) EOSINOPHILS RELATIVE PERCENT 0 % (BEAKER) (test code = 432) BASOPHILS RELATIVE PERCENT 0 % (BEAKER) (test code = 437) NEUTROPHILS ABSOLUTE COUNT 10.71 K/ L 1.80-8.00 H (BEAKER) (test code = 670) LYMPHOCYTES ABSOLUTE COUNT 0.69 K/ L 1.48-4.50 L (BEAKER) (test code = 414) MONOCYTES ABSOLUTE COUNT (BEAKER) 0.39 K/ L 0.00-1.30 (test code = 415) EOSINOPHILS ABSOLUTE COUNT 0.01 K/ L 0.00-0.50 (BEAKER) (test code = 416) BASOPHILS ABSOLUTE COUNT (BEAKER) 0.02 K/ L 0.00-0.20 (test code = 417) IMMATURE GRANULOCYTES-RELATIVE 1 % 0-0 H PERCENT (BEAKER) (test code = 2801) VIRAL - [id number] 19:59:00 Test Item Value Reference Range Interpretation Comments POC Flu A (test code Negative *NA*(01/05/22 = POC Flu A) 2:59 PM) [facility] [id number] 19:59:00 Test Item Value Reference Range Interpretation Comments POC Flu B (test code Negative *NA*(01/05/22 = POC Flu B) 2:59 PM) [facility]
--- NOTE | 2022-10-10 16:30 | RAD REPORT ---
EXAM DESCRIPTION: RAD - Chest Single View - 10/10/2022 4:18 pm CLINICAL HISTORY: PALPITATIONS COMPARISON: Chest Single View dated 01/18/2022 FINDINGS: Lines: None. Lungs: No evidence of edema or pneumonia. Pleural: No significant pleural effusions or pneumothorax. Cardiac: The heart size is within normal limits. Mediastinum: Within normal limits. Bones: No acute fractures. Other: None IMPRESSION: No acute cardiopulmonary disease.
[2022-10-10] MEDS ORDERED: NA CHLORIDE 0.9% 500 ML ONE (16:44)
[2022-10-10 17:08] LABS: Absolute Lymphocytes (CBC) 1.6 K/uL (0.7-4.9); Hematocrit 45.7 % (36.0-45.0); Lymphocytes % 17.9 % (15.3-44.8); Magnesium 2.2 mg/dL (1.6-2.4); Potassium 3.8 mmol/L (3.5-5.1); RBC Red Blood Cell Count 4.91 M/uL (3.86-4.86); Troponin High Sensitivity 8.4 pg/mL (<58.9)
[2022-10-10 17:17] LABS: Protime INR 1.01
[2022-10-10] MEDS ORDERED: METOPROLOL TAR 25 MG TAB ONE (17:29)
[2022-10-10 17:52] LABS: Urine Blood Trace-intact (Negative); Urine Glucose Negative (Negative); Urine Protein Negative (Negative); Urine Specific Gravity 1.015 (1.005-1.030)
--- NOTE | 2022-10-10 18:07 | RAD REPORT ---
EXAM DESCRIPTION: CT - Head Brain Wo Cont - 10/10/2022 5:56 pm CLINICAL HISTORY: dizziness COMPARISON: No comparisons TECHNIQUE: All CT scans are performed using dose optimization technique as appropriate and may inclu de automated exposure control or mA/KV adjustment according to patient size. FINDINGS: No intracranial hemorrhage, hydrocephalus or extra-axial fluid collection.No areas of brai n edema or evidence of midline shift. Cerebral atrophy which is age advanced. The paranasal sinuses and mastoids are clear. The calvarium is intact. IMPRESSION: No acute intracranial abnormality.
[2022-10-10 18:48] LABS: Urine Bacteria None Seen /HPF (<20); Urine RBC <5 /HPF (None Seen)
--- NOTE | 2022-10-10 20:05 | ER ---
Nurse's Notes [facility] Name: Otilia Landry Age: 62 yrs Sex: Female : 1960 Arrival Date: 10/10/2022 Time: 15:42 Bed 16 Private MD: Diagnosis: Palpitations Presentation: 10/10 15:54 Chief complaint: Patient states: she has been having a "flutter" feeling in her right ap3 armpit area as well as in her forehead for a few days. Coronavirus screen: At this time, the client does not indicate any symptoms associated with coronavirus-19. Ebola Screen: No symptoms or risks identified at this time. Initial Sepsis Screen: Does the patient meet any 2 criteria? HR > 90 bpm. Does the patient have a suspected source of infection? No. Patient's initial sepsis screen is negative. Risk Assessment: Do you want to hurt yourself or someone else? Patient reports no desire to harm self or others. Onset of symptoms was October 07, 2022. 15:54 Method Of Arrival: Ambulatory ap3 15:54 Acuity: RASHI 3 ap3 Triage Assessment: 15:58 General: Appears in no apparent distress. Behavior is calm, cooperative. Pain: Denies ap3 pain. Neuro: Level of Consciousness is awake, alert, obeys commands, Oriented to person, place, situation. Cardiovascular: Patient's skin is warm and dry. Cardiovascular: Reports fluttering under right arm pit. Respiratory: Airway is patent Respiratory effort is even, unlabored. Historical: - Allergies: 15:56 Hydrocodone-Acetaminophen; ap3 15:56 PENICILLINS; ap3 - Home Meds: 15:56 budesonide 0.5 mg/2 mL inhalation nbsp [Active]; ap3 - PMHx: 15:56 Chronic obstructive lung disease; ap3 - Immunization history:: Client reports receiving the 2nd dose of the Covid vaccine. - Social history:: Smoking status: Patient reports the use of cigarette tobacco products, smokes one pack cigarettes per day. Patient uses alcohol, on a daily basis. admits to "couple of beers" a day. Screenin:58 [facility] ED Fall Risk Assessment (Adult) History of falling in the last 3 months, ap3 including since admission. Abuse screen: Denies threats or abuse. Nutritional screening: No deficits noted. Tuberculosis screening: No symptoms or risk factors identified. Assessment: 16:55 General: Appears in no apparent distress. comfortable, Behavior is calm, cooperative, kc6 appropriate for age. Pain: Denies pain. Neuro: Clancy Agitation-Sedation Scale (RASS): 0 - Alert and Calm Level of Consciousness is awake, alert, obeys commands, Oriented to person, place, time, situation, Appropriate for age. Cardiovascular: Reports palpitations, Denies chest pain, shortness of breath, Heart tones S1 S2 present Capillary refill < 3 seconds. Respiratory: Airway is patent Trachea midline Respiratory effort is even, unlabored, Respiratory pattern is regular, symmetrical, Breath sounds are clear bilaterally. GI: No signs and/or symptoms were reported involving the gastrointestinal system. : No signs and/or symptoms were reported regarding the genitourinary system. EENT: No signs and/or symptoms were reported regarding the EENT system. Derm: No signs and/or symptoms reported regarding the dermatologic system. Skin is intact, Skin is pink, warm \\T\\ dry. Musculoskeletal: No signs and/or symptoms reported regarding the musculoskeletal system. Circulation, motion, and sensation intact. Capillary refill < 3 seconds, Range of motion: intact in all extremities. 17:15 Reassessment: Patient appears in no apparent distress at this time. No changes from kc6 previously documented assessment. Patient and/or family updated on plan of care and expected duration. Pain level reassessed. Patient is alert, oriented x 3, equal unlabored respirations, skin warm/dry/pink. Patient denies pain at this time. 18:15 Reassessment: Patient appears in no apparent distress at this time. No changes from kc6 previously documented assessment. Patient and/or family updated on plan of care and expected duration. Pain level reassessed. Patient is alert, oriented x 3, equal unlabored respirations, skin warm/dry/pink. Patient denies pain at this time. Vital Signs: 15:54 BP 179 / 80; Pulse 118; Resp 17; Temp 97.8; Pulse Ox 100% ; Weight 50.8 kg; Height 5 ap3 ft. 2 in. (157.48 cm); Pain 0/10; 17:15 BP 146 / 76; Pulse 107; Resp 20; Pulse Ox 97% on R/A; Pain 0/10; kc6 18:15 BP 144 / 75; Pulse 96; Resp 18 S; Pulse Ox 97% on R/A; Pain 0/10; kc6 20:34 BP 142 / 75; Pulse 89; Resp 16; Pulse Ox 97% on R/A; ll3 15:54 Body Mass Index 20.48 (50.80 kg, 157.48 cm) ap3 ED Course: 15:42 Patient arrived in ED. rg4 15:43 Raleigh Mccartyh PA is PHCP. cp 15:43 Lenny Rodriges MD is Attending Physician. cp 15:55 Triage completed. ap3 15:59 Arm band placed on left wrist. ap3 16:18 Violet Antonio, JESSICA is Primary Nurse. kc6 16:20 XRAY Chest (1 view) In Process Unspecified. EDMS 16:40 Basic Metabolic Panel Sent. kc6 16:40 CBC with Diff Sent. kc6 16:40 D-Dimer Sent. kc6 16:40 Magnesium Sent. kc6 16:40 NT PRO-BNP Sent. kc6 16:40 PT-INR Sent. kc6 16:40 Troponin HS Sent. kc6 16:40 Inserted saline lock: 22 gauge in left forearm, using aseptic technique. Blood kc6 collected. 17:55 Urine Microscopic Only Sent. kc6 17:57 CT Head Brain wo Cont In Process Unspecified. EDMS 19:28 Troponin High Sensitivity Sent. ls5 20:34 Patient has correct armband on for positive identification. Bed in low position. Call ll3 light in reach. Side rails up X 1. Adult w/ patient. 20:34 No provider procedures requiring assistance completed. IV discontinued, intact, ll3 bleeding controlled, No redness/swelling at site. Pressure dressing applied. Administered Medications: 16:54 Drug: NS 0.9% 500 ml Route: IV; Rate: bolus; Site: left forearm; kc6 17:55 Follow up: Response: No adverse reaction; IV Status: Completed infusion; IV Intake: kc6 500ml 17:52 Drug: Metoprolol 12.5 mg Route: PO; kc6 Medication: 20:34 VIS not applicable for this client. ll3 Intake: 17:55 IV: 500ml; Total: 500ml. kc6 Outcome: 20:04 Discharge ordered by . cp 20:34 Discharged to home ambulatory, with significant other. ll3 20:34 Condition: stable 20:34 Discharge instructions given to patient, significant other, Instructed on discharge instructions, follow up and referral plans. Demonstrated understanding of instructions, follow-up care. 20:35 Patient left the ED. ll3 Signatures: Dispatcher [employer] EDMS Raleigh Mccarthy PA PA cp Garcia, Rubi rg4 Keena Pino RN RN ap3 Frida Ayala RN RN ll3 Violet Antonio RN RN kc6 Americo Enriquez 5
--- NOTE | 2022-10-10 20:05 | EDPHYS ---
Physician Documentation [facility] Name: Otilia Landry Age: 62 yrs Sex: Female : 1960 Arrival Date: 10/10/2022 Time: 15:42 Bed 16 Private MD: ED Physician Lenny Rodriges HPI: 10/10 16:10 This 62 yrs old Female presents to ER via Ambulatory with complaints of Fluttering cp Under Arm and In Head. 16:10 The patient presents with a history of described as "fluttering". Context: The symptoms cp occur at rest. Onset: The symptoms/episode began/occurred today. Duration: The patient or guardian reports a single episode, that is still ongoing. 16:10 Associated signs and symptoms: Pertinent positives: "fluttering" in head, Pertinent cp negatives: chest pain, cough, fever, SOB, syncope, near-syncope, vomiting. Severity of symptoms: in the emergency department the symptoms are unchanged despite home interventions. Patient reports using nebulizer earlier today. Reports she is prescribed budesonide neb solution since being diagnosed and treated for pneumonia last year. Historical: - Allergies: 15:56 Hydrocodone-Acetaminophen; ap3 15:56 PENICILLINS; ap3 - Home Meds: 15:56 budesonide 0.5 mg/2 mL inhalation nbsp [Active]; ap3 - PMHx: 15:56 Chronic obstructive lung disease; ap3 - Immunization history:: Client reports receiving the 2nd dose of the Covid vaccine. - Social history:: Smoking status: Patient reports the use of cigarette tobacco products, smokes one pack cigarettes per day. Patient uses alcohol, on a daily basis. admits to "couple of beers" a day. ROS: 16:15 Constitutional: Negative for body aches, chills, fever, poor PO intake. cp 16:15 Eyes: Negative for injury, pain, redness, and discharge. cp 16:15 ENT: Negative for drainage from ear(s), ear pain, sore throat, difficulty swallowing, difficulty handling secretions. 16:15 Cardiovascular: Positive for palpitations, Negative for chest pain, edema. 16:15 Respiratory: Negative for cough, shortness of breath, wheezing. 16:15 Abdomen/GI: Negative for abdominal pain, nausea, vomiting, and diarrhea. 16:15 Back: Negative for pain at rest, pain with movement. 16:15 Neuro: Negative for altered mental status, dizziness, headache, numbness, weakness. 16:15 All other systems are negative. Exam: 16:07 ECG was reviewed by the Attending Physician. cp 16:20 Constitutional: The patient appears in no acute distress, alert, awake, cp non-diaphoretic, non-toxic, well developed, well nourished. 16:20 Head/Face: Normocephalic, atraumatic. cp 16:20 Eyes: Periorbital structures: appear normal, Conjunctiva: normal, no exudate, no injection, Sclera: no appreciated abnormality, Lids and lashes: appear normal, bilaterally. 16:20 ENT: External ear(s): are unremarkable, Nose: is normal, Mouth: Lips: moist, Oral mucosa: moist, Posterior pharynx: Airway: no evidence of obstruction, patent. 16:20 Neck: ROM/movement: is normal, is supple, without pain, no range of motions limitations. 16:20 Chest/axilla: Inspection: normal. 16:20 Cardiovascular: Rate: tachycardic, Rhythm: regular, Edema: is not appreciated, JVD: is not appreciated. 16:20 Respiratory: the patient does not display signs of respiratory distress, Respirations: normal, no use of accessory muscles, no retractions, labored breathing, is not present, Breath sounds: are clear throughout, no decreased breath sounds, no stridor, no wheezing. 16:20 Abdomen/GI: Exam negative for discomfort, distension, guarding, Inspection: abdomen appears normal. 16:20 Back: pain, is absent, ROM is normal. 16:20 Neuro: Orientation: to person, place \\T\\ time. Mentation: is normal, Cerebellar function: is grossly normal, Motor: moves all fours, strength is normal, Sensation: is normal. 19:16 ECG was reviewed by the Attending Physician. cp Vital Signs: 15:54 BP 179 / 80; Pulse 118; Resp 17; Temp 97.8; Pulse Ox 100% ; Weight 50.8 kg; Height 5 ap3 ft. 2 in. (157.48 cm); Pain 0/10; 17:15 BP 146 / 76; Pulse 107; Resp 20; Pulse Ox 97% on R/A; Pain 0/10; kc6 18:15 BP 144 / 75; Pulse 96; Resp 18 S; Pulse Ox 97% on R/A; Pain 0/10; kc6 20:34 BP 142 / 75; Pulse 89; Resp 16; Pulse Ox 97% on R/A; ll3 15:54 Body Mass Index 20.48 (50.80 kg, 157.48 cm) ap3 MDM: 16:05 Patient medically screened. cp 17:00 Differential diagnosis: arrythmia, dehydration, stress disorder, anxiety, medication cp side effect, electrolyte abnormality. 20:02 Data reviewed: vital signs, nurses notes, lab test result(s), EKG, radiologic studies, cp plain films. 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 Interpretation: normal. Test interpretation: by ED physician or midlevel provider: ECG, plain radiologic studies. Counseling: I had a detailed discussion with the patient and/or guardian regarding: the historical points, exam findings, and any diagnostic results supporting the discharge/admit diagnosis, the presence of at least one elevated blood pressure reading (>120/80) during this emergency department visit, lab results, radiology results, the need for outpatient follow up, a family practitioner, to return to the emergency department if symptoms worsen or persist or if there are any questions or concerns that arise at home. Response to treatment: the patient's symptoms have markedly improved after treatment, and as a result, I will discharge patient. 10/10 16:00 Order name: Basic Metabolic Panel; Complete Time: 17:09 cp 10/10 17:10 Interpretation: Normal except: GLUC 107. cp 10/10 16:00 Order name: CBC with Diff; Complete Time: 17:21 cp 10/10 17:21 Interpretation: Normal except: RBC 4.91; HGB 15.6; HCT 45.7; KAILEE% 73.9. cp 10/10 16:00 Order name: D-Dimer; Complete Time: 17:21 cp 10/10 17:22 Interpretation: Within normal limits: D-DIMER < 215. cp 10/10 16:00 Order name: Magnesium; Complete Time: 17:09 cp 10/10 16:00 Order name: NT PRO-BNP; Complete Time: 17:09 cp 10/10 16:00 Order name: PT-INR; Complete Time: 17:21 cp 10/10 16:00 Order name: Troponin HS; Complete Time: 17:09 cp 10/10 17:59 Interpretation: Reviewed. cp 10/10 16:00 Order name: XRAY Chest (1 view); Complete Time: 16:52 cp 10/10 16:52 Interpretation: Report review. cp 10/10 16:06 Order name: Urine Microscopic Only; Complete Time: 20:00 cp 10/10 17:22 Order name: CT Head Brain wo Cont; Complete Time: 18:10 cp 10/10 18:10 Interpretation: Report reviewed. cp 10/10 17:52 Order name: Urine Dipstick-Ancillary; Complete Time: 17:59 EDMS 10/10 17:59 Interpretation: Normal except: UKET 1+; UBLD Trace-intact. cp 10/10 19:01 Order name: Troponin High Sensitivity; Complete Time: 20:00 cp 10/10 16:00 Order name: EKG; Complete Time: 16:01 cp 10/10 16:00 Order name: Cardiac monitoring; Complete Time: 16:40 cp 10/10 16:00 Order name: EKG - Nurse/Tech; Complete Time: 16:40 cp 10/10 16:00 Order name: IV Saline Lock; Complete Time: 16:40 cp 10/10 16:00 Order name: Labs collected and sent; Complete Time: 16:40 cp 10/10 16:00 Order name: O2 Per Protocol; Complete Time: 16:40 cp 10/10 16:00 Order name: O2 Sat Monitoring; Complete Time: 16:40 cp 10/10 16:06 Order name: Urine Dipstick-Ancillary (obtain specimen); Complete Time: 17:52 cp 10/10 19:01 Order name: EKG - Nurse/Tech; Complete Time: 19:07 cp EC:07 Rate is 119 beats/min. Rhythm is regular. ND interval is normal. QRS interval is cp normal. QT interval is normal. T waves are Inverted in lead aVR. Interpreted by me. Reviewed by me. 19:16 Rate is 79 beats/min. Rhythm is regular. ND interval is normal. QRS interval is normal. cp QT interval is normal. T waves are Inverted in lead aVR. Interpreted by me. Reviewed by me. Administered Medications: 16:54 Drug: NS 0.9% 500 ml Route: IV; Rate: bolus; Site: left forearm; kc6 17:55 Follow up: Response: No adverse reaction; IV Status: Completed infusion; IV Intake: kc6 500ml 17:52 Drug: Metoprolol 12.5 mg Route: PO; kc6 Disposition Summary: 10/10/22 20:04 Discharge Ordered Location: Home cp Problem: new cp Symptoms: have improved cp Condition: Stable cp Diagnosis - Palpitations cp Followup: cp - With: Private Physician - When: 1 - 2 days - Reason: Recheck today's complaints Discharge Instructions: - Discharge Summary Sheet cp - Palpitations cp - Aspirin and Your Heart cp - Ambulatory Cardiac Monitoring cp Forms: - Medication Reconciliation Form cp - Thank You Letter cp - Antibiotic Education cp - Prescription Opioid Use cp Signatures: Dispatcher [employer] EDRaleigh Vasquez PA PA cp Prokisch, Amanda, RN RN ap3 Violet Antonio RN RN kc6
[2022-10-10 20:41] VITALS: TEMP 97.8
[2022-10-10 20:43] VITALS: O2SAT 97
[2022-10-10 20:45] VITALS: BP 142/75
--- NOTE | 2022-10-11 16:03 | EKG ---
Test Date: 2022-10-10 Test Time: 19:10:11 Whip Operator: RV MEASUREMENT RESULTS: Intervals: Rate: 79 KS: 118 QRSD: 88 QT: 364 QTc: 417 [place]: P: 69 KS: 118 QRS: 82 T: 64 INTERPRETIVE STATEMENTS: Normal sinus rhythm Possible Left atrial enlargement Borderline ECG Compared to ECG 10/10/2022 16:03:16 Sinus tachycardia no longer present ST (T wave) deviation no longer present Electronically Signed On 10-11-22 16:01:40 SHOP ROUTER by Ren Light
--- NOTE | 2022-10-11 16:04 | EKG ---
Test Date: 2022-10-10 Test Time: 16:03:16 Conference Organizer: BONNY MEASUREMENT RESULTS: Intervals: Rate: 119 GA: 122 QRSD: 84 QT: 324 QTc: 455 [place]: P: 79 GA: 122 QRS: 89 T: 64 INTERPRETIVE STATEMENTS: Sinus tachycardia Biatrial enlargement Nonspecific ST abnormality Abnormal ECG Compared to ECG 01/18/2022 15:24:48 ST (T wave) deviation now present Myocardial infarct finding no longer present T-wave abnormality no longer present Possible ischemia no longer present Electronically Signed On 10-11-22 16:03:22 GOVERNMENT PROPERTY INSPECTOR by Ren Light
== END 2022-10-10 20:35 | disposition home or self-care (01) ==
LOC: ER 15:40
DX: R00.2 Palpitations (principal); F17.210 Nicotine dependence, cigarettes, uncomplicated
CPT/HCPCS: 36415; 70450; 71045; 80048; 81003; 81015; 83735; 83880; 84484; 85025; 85379; 85610; 93005; 96360; 99284; J7040